=== PATIENT | male | born 1985 | race African-American/Black ===

== ENCOUNTER 2017-04-09 19:09 | Emergency (ER) | payer OTHER ==
--- NOTE | ~2017-04-09 | CR72 ---
[facility] A Service of [facility] & [facility] RADIOLOGY TEXT RESULTS PATIENT: RAIN BARAHONA LOCATION: [facility] : [id number] UNIT #: [id number] AGE: [address]: Melly Khan MD SEX: M ORDER DR: [id number] [facility] [address] [place], [place] [address] [id number] E MR#: [id number] Acc #: [id number] NAME: RAIN BARAHONA : 1985 SEX: M STUDY DATE/TIME: 04/09/2017 19:38 UNIT: [facility] ROOM: STUDY DESCRIPTION: CR Chest Single View Portable Attending Physician: Melly Khan M.D. Ordering Physician: Melly Khan M.D. Primary Care Physician: Primary Care Physician No MEDICAL IMAGING REPORT This report is preliminary unless electronic signature is present EXAM Portable chest 04/09/2017 COMPARISON 07/05/2014. CLINICAL HISTORY Rib pain following CPR today. FINDINGS Negative chest, no infiltrate, effusion or pneumothorax. Pulmonary vascularity, heart size and bony structures appear normal. Dictated by... Kamlesh Petty M.D. THIS IS AN ELECTRONICALLY VERIFIED REPORT Kamlesh Petty M.D. at 04/19/2017 4:00 PM TEV/jaiden TD: 04/10/2017 07:32 JOB #: [id number] MEDICAL IMAGING REPORT Page 1 of 1 COPY
[~2017-04-09 19:09] MED LIST: BACTRIM DS TABL1 TA2 PO; KEFLEX500 M1; MOTRIN400 M1 DOB; NO MEDICATIONS
== END 2017-04-09 21:58 | disposition home or self-care (01) ==
LOC: CED 19:09
DX: S20.219A Contusion of unspecified front wall of thorax, initial encounter (principal); F11.10 Opioid abuse, uncomplicated; F17.200 Nicotine dependence, unspecified, uncomplicated; X58.XXXA Exposure to other specified factors, initial encounter; Y92.9 Unspecified place or not applicable
CPT/HCPCS: 71010; 96361; 96374; 99284; J2405

== ENCOUNTER 2017-05-07 16:22 | Emergency (ER) | payer OTHER | END 2017-05-07 17:50 | disposition home or self-care (01) | LOC: SED 16:22 | DX: L02.413 Cutaneous abscess of right upper limb (principal); L03.113 Cellulitis of right upper limb; F17.210 Nicotine dependence, cigarettes, uncomplicated | CPT/HCPCS: 10060; 99282 ==